=== PATIENT | male | born 1960 | race Caucasian/White ===

== ENCOUNTER 2017-02-10 17:18 | Emergency (ER) | payer SELFPAY ==
[~2017-02-10] VITALS: Ht 177.8 cm; Wt 80.0 kg
[2017-02-10] MEDS ORDERED: SODIUM CHLORIDE 0.9% 1,000 ML IV ONE ×2 (17:56→19:43)
[2017-02-10 18:32] LABS: HEMATOCRIT 37.2 % (42.0-52.0); HEMOGLOBIN 12.7 g/dL (14.0-18.0); MEAN CORPUSCULAR VOLUME 96.8 fL (80.0-94.0); PLATELET 106 x1000/uL (130-400); RED BLOOD CELL COUNT 3.84 mill/uL (4.7-6.1); RED CELL DISTRIBUTION WIDTH 14.3 % (11.6-14.6)
[2017-02-10 18:37] LABS: CHLORIDE 111 mEq/L (98-107)
[2017-02-10 18:41] LABS: *AMPHETAMINES SCREEN URINE NEGATIVE (NEGATIVE); *BARBITURATES SCREEN URINE NEGATIVE (NEGATIVE); *BENZODIAZEPINES SCREEN URINE NEGATIVE (NEGATIVE); *COCAINE SCREEN URINE NEGATIVE (NEGATIVE); CANNABINOID URINE SCREEN NEGATIVE (NEGATIVE); METHADONE URINE SCREEN NEGATIVE (NEGATIVE); OPIATES URINE SCREEN NEGATIVE (NEGATIVE); PHENCYCLIDINE URINE SCREEN NEGATIVE (NEGATIVE)
[2017-02-10 18:43] LABS: CARBON DIOXIDE 25 mEq/L (21-32)
[2017-02-10 18:52] LABS: ETHANOL BLOOD 529 mg/dL
[2017-02-10] MEDS ORDERED: FOLIC ACID 1 MG, THIAMINE HCL 100 MG, MVI, ADULT NO.1 10 ML in DEXTROSE 5% WATER 1,000 ML IV ONE ×4 (21:00)
[2017-02-11 04:33] VITALS: BP 149/94
== END 2017-02-11 04:35 | disposition home or self-care (01) ==
LOC: ER 17:43
DX: F10.129 Alcohol abuse with intoxication, unspecified (principal); Y90.8 Blood alcohol level of 240 mg/100 ml or more
CPT/HCPCS: 36415; 80048; 80305; 85027; 96361; 96365; 96366; 99285; G0482; J3411; J3490; J7030; J7070; Z7610